=== PATIENT | male | born 2000 | race Asian ===

== ENCOUNTER 2020-11-18 15:54 | Emergency (ER) | payer BC ==
[~2020-11-18] VITALS: Ht 175.3 cm; Wt 93.0 kg
[2020-11-18 16:01] VITALS: TEMP 97.4
[2020-11-18 16:42] LABS: PLATELET COUNT 283 K/uL (142-355)
[2020-11-18 17:50] VITALS: BP 120/70
== END 2020-11-18 17:54 | disposition home or self-care (01) ==
LOC: ED 15:54
PROVIDERS: Hospitalist
DX: J06.9 Acute upper respiratory infection, unspecified (principal); Z20.828 Contact with and (suspected) exposure to other viral communicable diseases; F17.210 Nicotine dependence, cigarettes, uncomplicated
CPT/HCPCS: 80048; 85027; 87502; 87635; 87651; 99283; U0003